=== PATIENT | male | born 1985 | race Caucasian/White ===

== ENCOUNTER 2022-06-14 08:04 | Emergency (ER) | payer OTHER, SELFPAY ==
--- NOTE | 2022-06-14 08:14 | ED.NAVMDI ---
HPI - Nausea/Vomiting/Diarrhea General Chief complaint: Nausea/Vomiting/Diarrhea Stated complaint: Nausea/Dizziness Time Seen by Provider: 06/14/22 08:10 Source: patient and RN notes reviewed History of Present Illness HPI Narrative: Patient is a 36-year-old male who presents the urgent care with complaints of nausea, headaches. Patient states that started with a headache on Friday and he was very nauseated. States that he slept all day felt better morning, went to work and had another headache by 12 PM. Patient states he slept all day yesterday and today woke up with the nausea. Patient states that the entire time he has had the cold sweats. Patient denies of any vomiting, diarrhea or abdominal pain. Patient states that the headache is nearly gone at this time. Denies of any ill exposures. Patient assumed that maybe it was due to elevated blood pressure. Patient has been taking his BP meds as prescribed. No other acute complaints. No acute distress noted. Patient read the plan of care. Some parts of this dictation were generated by voice recognition software and may contain typographical and/or grammatical inaccuracies. Related Data Home Medications Medication Instructions Recorded Confirmed irbesartan 300 1 tablet PO DAILY 06/14/22 06/14/22 mg-hydrochlorothiazide 12.5 mg tablet metoprolol succinate 50 mg 50 mg PO DAILY 06/14/22 06/14/22 tablet,extended release 24 hr Allergies Allergy/AdvReac Type Severity Reaction Status Date / Time No Known Allergies Allergy Mild Unverified 01/20/08 08:15 Review of Systems Review of Systems: CONSTITUTIONAL: Reports of cold sweats EYES: Denies visual changes, redness, or discharge. ENT: Denies rhinorrhea, congestion, sore throat, or otalgia. CARDIOVASCULAR: Denies chest pain, palpitations, or edema. RESPIRATORY: Denies cough or dyspnea. GASTROINTESTINAL: Reports of persistent nausea without vomiting or abdominal pain GENITOURINARY: Denies dysuria or hematuria. SKIN: Denies rash or itching. MUSCULOSKELETAL: Denies back pain, joint pain, or myalgia. NEUROLOGIC: Reports of a headache All other systems reviewed are negative, except as documented in HPI. PMFSH Comments At the time of my signature, I reviewed and agree with the nursing past medical, surgical, social, and family history. There is no relevant family history pertinent to the patient complaint. Exam Narrative: GENERAL: This is a well-nourished, well-developed patient, in no apparent distress. HEAD: normocephalic, atraumatic. EYES: PERRL. Sclera clear/white. Vision is grossly intact. EARS: External ears normal, auditory canals clear and without drainage, TMs normal without perforation. Hearing grossly intact. NOSE: External nose normal with no obvious nasal discharge, nares without redness, clearrhinorrhea. THROAT: Mucous membranes moist, mild bilateral tonsillar edema without exudate. Moderate postnasal drainage. NECK: Neck supple CARDIOVASCULAR: Regular rate and rhythm without murmurs, gallops, or rubs. RESPIRATORY: Clear to auscultation. Breath sounds equal bilaterally. No wheezes, rales, or rhonchi. GASTROINTESTINAL: Abdomen soft, non-tender, nondistended. Bowel sounds are active. No guarding. SKIN: Diaphoretic. Warm, intact with no suspicious lesions or rash, good texture and turgor. NEURO: awake, alert, and oriented to person, place and time. There were no obvious focal neurologic abnormalities. EXTREMITIES: No clubbing, cyanosis, or edema. Course Course Level of Care: Express Care Visit Vital Signs Vital signs: Vital Signs Temperature 98.6 F 06/14/22 08:17 Pulse Rate 106 H 06/14/22 08:17 Respiratory Rate 16 06/14/22 08:17 Blood Pressure 147/95 H 06/14/22 08:17 Pulse Oximetry 98 06/14/22 08:17 Oxygen Delivery Room Air 06/14/22 08:17 Temperature 98.6 F 06/14/22 08:19 Pulse Rate 106 H 06/14/22 08:19 Respiratory Rate 16 06/14/22 08:19 Blood Pressure 147
[2022-06-14 08:17] VITALS: BP 147/95; PULSE 106; RESP 16; TEMP 37; O2SAT 98
[2022-06-14 08:19] VITALS: BP 147/95; PULSE 106; RESP 16; TEMP 37; O2SAT 98
[2022-06-14 08:28] LABS: Glucose Point of Care 126 mg/dl (65-105)
--- NOTE | 2022-06-14 08:52 | ECG_ITS ---
Measurements Intervals [place] Rate: 95 P: 49 WY: 176 QRS: 15 QRSD: 115 T: 34 QT: 329 QTc: 415 Interpretive Statements SINUS RHYTHM WITHIN NORMAL LIMITS NO PREVIOUS ECG AVAILABLE FOR COMPARISON Electronically Signed On 06-14-2022 13:43:42 CDT by Migel Villalpando M.D.
== END 2022-06-14 08:59 | disposition home or self-care (01) ==
PROVIDERS: Emergency Provider Nurse Practitioner Family; PCP Family Medicine Sports Medicine
DX: R11.0 Nausea (principal); I10 Essential (primary) hypertension
CPT/HCPCS: 82948; 87081; 87880; 93005; 99213; G0463

== ENCOUNTER 2022-06-15 08:31 | Emergency (ER) | payer OTHER, SELFPAY ==
[2022-06-15] VITALS (11 sets, daily range): BP systolic 118–156; BP diastolic 73–102; PULSE 81–111; RESP 12–23; TEMP 37; O2SAT 95–100
--- NOTE | ~2022-06-15 | XR_ITS ---
EXAMINATION: XR chest 1V portable 06/15/2022 09:19 INDICATION: Dizziness. Hypertension. PROCEDURE: AP portable chest COMPARISON: No prior studies for comparison. FINDINGS: The lungs are clear. The cardiomediastinal silhouette is within normal limits. There are no pleural effusions. There is no pneumothorax suspected. IMPRESSION: 1: NO ACUTE CARDIOPULMONARY DISEASE. Reviewed, dictated and finalized at location A.
--- NOTE | ~2022-06-15 | CT_ITS ---
EXAMINATION: CT BRAIN W/O DATE: 06/15/2022 10:02 INDICATION: Frontal headache. Dizziness TECHNIQUE: Computed tomography (CT) of the head was performed without intravenous contrast. The dose- length product was 605.33 mGy-cm. Automated exposure control and iterative reconstruction technique were employed. COMPARISON: No prior studies for comparison. FINDINGS: Normal brain parenchymal volume for age. Normal worley-white differentiation. No acute intrac ranial hemorrhage, infarction, mass or mass effect. No ventriculomegaly or midline shift. Midline sagittal images demonstrate a normal corpus callosum, c raniovertebral junction and sella turcica. Basilar cisterns are patent. Paranasal sinuses and mastoids are pneumatized. No depressed skull fractures. IMPRESSION: 1. No acute intracranial abnormality. Reviewed, dictated and finalized at location A.
--- NOTE | 2022-06-15 08:40 | ECG_ITS ---
Measurements Intervals [place] Rate: 95 P: 34 TN: 188 QRS: 10 QRSD: 100 T: 30 QT: 323 QTc: 408 Interpretive Statements SINUS RHYTHM NONSPECIFIC ST ELEVATION LIKELY EARLY REPOLARIZATION OTHERWISE NORMAL ECG COMPARED TO ECG 06/14/2022 08:48:03 NO SIGNIFICANT CHANGE Electronically Signed On 06-16-2022 10:08:41 CDT by Migel Villalpando M.D.
--- NOTE | 2022-06-15 08:42 | ED.GENADULT ---
HPI - General Adult General Chief complaint: Headache Stated complaint: headaches, dizzy x 4 days Time Seen by Provider: 06/15/22 08:35 Source: RN notes reviewed History of Present Illness HPI narrative: Patient presents emergency department from home for headache and dizziness. Patient states for the past 4 days he has been having intermittent headaches has been associated with dizziness. States that the headaches will come and go and he currently does not have a headache but the headaches are general nature described as aching states that dizziness is described as a sensation of the room spinning and states is worse with movement of his head and getting up he states that this time he has no headache but he does have dizziness with moving his head he denies any numbness or tingling of the extremities he denies any vision changes he denies any chest pain shortness of breath abdominal pain nausea vomiting Related Data Home Medications Medication Instructions Recorded Confirmed irbesartan 300 1 tablet PO DAILY 06/14/22 06/14/22 mg-hydrochlorothiazide 12.5 mg tablet metoprolol succinate 50 mg 50 mg PO DAILY 06/14/22 06/14/22 tablet,extended release 24 hr Allergies Allergy/AdvReac Type Severity Reaction Status Date / Time No Known Allergies Allergy Mild Unverified 01/20/08 08:15 Review of Systems Review of Systems: Gen.: Denies fevers or chills Eyes: Denies eye pain or visual change ENT: Denies congestion Respiratory: Denies shortness of breath or cough CV: Denies chest pain or palpitations GI: Denies abdominal pain nausea, emesis or diarrhea Musculoskeletal: Denies back pain or muscle pain Neuro: See HPI Skin: Denies rash Except as documented, all other systems reviewed and negative [facility] Past Medical History Medical History (Updated 06/15/22 @ 14:03 by Prieto Russell DO) Hypertension Social History Social History (Updated 06/15/22 @ 08:43 by Prieto Russell DO) Smoking status: Never smoker Exam Narrative: APPEARANCE: No acute distress, nontoxic, resting in bed HEENT: Normocephalic, atraumatic, OMM, TMs clear bilaterally EYES: PERRL, EOMI NECK: Supple, nontender, full range of motion without pain, no meningismus RESPIRATORY: No respiratory distress, clear to auscultation bilaterally with no rhonchi wheezing or rales CARDIOVASCULAR: RRR s murmur ABDOMINAL: Soft, nontender, nondistended MUSCULOSKELETAL: Moves all extremities. No clubbing, cyanosis or edema. NEURO: A and O ?4, following commands, speech normal, cranial nerves II through XII grossly intact,muscle strength 5 out of 5 bilateral upper and lower extremities dizziness with rotating the head to the right and left SKIN:: Warm, dry. Normal Color PSYCHIATRIC: Normal affect/mood Course Course Emergency Course: Patient states dizziness minimally improved with meclizine and completely resolved with Valium. Patient also to get a mild headache and that was resolved with Toradol Discussed with patient results of workup and diagnosis. Discussed need for follow-up with primary care, proper use of medication, and reasons to return to the emergency department. Patient understands and agrees to current treatment plan Vital Signs Vital signs: Vital Signs Temperature 98.6 F 06/15/22 08:36 Pulse Rate 111 H 06/15/22 08:36 Respiratory Rate 20 06/15/22 08:36 Blood Pressure 156/102 H 06/15/22 08:36 Pulse Oximetry 97 06/15/22 08:36 Temperature 98.6 F 06/15/22 08:36 Pulse Rate 92 06/15/22 13:58 Respiratory Rate 15 06/15/22 13:58 Blood Pressure 145/94 H 06/15/22 13:58 Pulse Oximetry 98 06/15/22 13:58 Medical Decision Making MDM Narrative Medical decision making narrative: Patient's vertigo is felt to be likely peripheral in origin. There is no diplopia, dysarthria or dysphagia. Patient's gait is stable and there are no cerebral deficits to exam. Risk factor for central causes of vertigo reviewed. Patient felt li
[2022-06-15] MEDS: MECLIZINE HCL 25 MG TABLET PO (09:01)
[2022-06-15] MEDS: SODIUM CHLORIDE 0.9% IV 1,000 ML 999 ML IV CONT (09:01)
[2022-06-15 09:14] LABS: Basophils Absolute Auto 0.1 K/mm3 (0.0-0.1); Basophils Percent Auto 0.9 % (0.2-1.2); Eosinophils Percent Auto 0.6 % (0-4.4); Hematocrit 42.1 % (42.0-52.0); Hemoglobin 14.5 g/dL (14.0-18.0); Immature Granulocyte Absolute 0.02 K/mm3 (0.00-0.031); Immature Granulocyte Percent A 0.3 % (0-0.5); Lymphocytes Absolute Auto 1.31 K/mm3 (0.9-3.2); Lymphocytes Percent Auto 19.7 % (18.3-44.2); Mean Corpuscular HGB Conc 34.4 g/dl (32-36); Mean Corpuscular Hemoglobin 27.5 pg (26-34); Mean Corpuscular Volume 79.9 fl (80-100); Mean Platelet Volume 9.1 fl (7.4-10.4); Monocytes Absolute Auto 0.6 K/mm3 (0.1-0.6); Neutrophils Absolute Auto 4.6 K/mm3 (1.3-6.7); Neutrophils Percent Auto 69.5 % (45.5-73.1); Platelet Count Result 392 k/mm3 (150-375); Red Blood Count 5.27 M/mm3 (4.6-6.20); Red Cell Distribution Width 12.7 % (11.5-14.5); White Blood Count 6.7 K/mm3 (4.5-10.0)
[2022-06-15 09:27] LABS: Alanine Aminotransferase 27 U/L (6-50); Albumin Level 4.6 g/dL (3.5-5.1); Alkaline Phosphatase 79 U/L (38-126); Anion Gap 11 mmol/L (8-16); Aspartate Amino Transferase 29 U/L (17-59); Bilirubin,Total 0.9 mg/dL (0.2-1.3); Blood Urea Nitrogen 11 mg/dL (9-20); Carbon Dioxide 27 mmol/L (22-30); Chloride 98 mmol/L (98-107); Estimated CRCL calculation 138 ml/min; Estimated Glomerular Filt Rate > 60; Glucose 135 mg/dL (65-110); Potassium 3.5 mmol/L (3.4-5.0); Sodium 136 mmol/L (137-145)
[2022-06-15 09:37] LABS: Add Urine Microscopic? NO; Appearance Urine Clear (Clear); Bilirubin Urine Negative (Negative); Blood Urine Negative (Negative); Color Urine Yellow (Yellow); Glucose Urine UA Negative (Negative); Ketones Urine Negative (Negative); Leukocyte Esterase Ur Negative LEU/UL (Negative); Nitrate Urine Negative (Negative); Protein Urine Negative (Negative); Specific Grav Ur 1.016 (1.001-1.035); Urobilinogen Urine Negative mg/dL (<2.0)
[2022-06-15 09:38] LABS: Troponin I < 0.012 ng/mL (0.000-0.034)
--- NOTE | 2022-06-15 10:57 | PC.NURSE ---
Assumed pt care from VALERY Ramesh
--- NOTE | 2022-06-15 11:06 | PC.NURSE ---
Per verbal orders from Dr. Russell, a road test was administered. Pt ambulated from rm 10 around the central nurse's station and back to rm 10. Pt stated that he was feeling dizzy approx 1/[address] around the nurse's station. Pt pulse ox dropped from 98% to 88%. Pt denied SOB just dizzy and lightheaded. Pt quickly recovered when he stopped ambulating for approx 15-30 sec. Pt was ambulated back to rm [address] Russell was updated on the results.
[2022-06-15 11:45] LABS: D Dimer 0.37 ug/mL (<0.48)
[2022-06-15 11:57] LABS: SARS-CoV-2 RNA PCR Negative
[2022-06-15] MEDS: diazePAM (*CRX) 2 MG TABLET PO (12:27)
--- NOTE | 2022-06-15 13:45 | PC.NURSE ---
Ambulated pt with walking pulse ox - pulse ox remained 98%, pt denied dizziness, has a little headache - informed Dr Russell
[2022-06-15] MEDS: KETOROLAC 30 MG/ML VIAL (*BKC) IV PUSH (13:54)
== END 2022-06-15 14:13 | disposition home or self-care (01) ==
PROVIDERS: Emergency Provider Emergency Medicine; PCP Family Medicine Sports Medicine
DX: R51.9 Headache, unspecified (principal); I10 Essential (primary) hypertension; Z20.822 Contact with and (suspected) exposure to COVID-19
CPT/HCPCS: 36415; 70450; 71045; 80053; 81003; 84484; 85025; 85380; 93005; 96361; 96374; 99284; A9270; C9803; J1885; J7030; U0003; U0005

== ENCOUNTER 2022-08-16 08:02 | Emergency (ER) | payer OTHER, SELFPAY ==
[2022-08-16 08:07] VITALS: BP 129/88; PULSE 100; RESP 18; TEMP 37.2; O2SAT 99
--- NOTE | 2022-08-16 08:25 | ED.URI ---
HPI - URI/Sore Throat General Chief Complaint: Upper Respiratory Infection Stated Complaint: sore throat and ear pain Time Seen by Provider: 08/16/22 08:16 Source: patient and RN notes reviewed Mode of arrival: ambulatory Limitations: no limitations History of Present Illness HPI Narrative: 36-year-old male presents concern for sore throat and ear pain. He reports he started feeling ill 2 days ago, reports swollen tonsils, bilateral ear pain, sweats, chills. He reports he has been taking ibuprofen. Reports kids at home have been sick. Reports he had trouble swallowing his pills due to his tonsils this morning, however his hot coffee helped. MD elicited complaint: cough and sore throat Related Data Home Medications Medication Instructions Recorded Confirmed irbesartan 300 1 tablet PO DAILY 06/14/22 08/16/22 mg-hydrochlorothiazide 12.5 mg tablet metoprolol succinate 50 mg 50 mg PO DAILY 06/14/22 08/16/22 tablet,extended release 24 hr Allergies Allergy/AdvReac Type Severity Reaction Status Date / Time No Known Allergies Allergy Mild Unverified 01/20/08 08:15 Review of Systems Review of Systems: CONSTITUTIONAL: Reports malaise, chills, sweats EYES: Denies visual changes, redness, or discharge. ENT: Denies rhinorrhea, congestion, sinus pain. Reports otalgia and sore throat. CARDIOVASCULAR: Denies chest pain, palpitations, or edema. RESPIRATORY: Denies cough. Denies dyspnea. GASTROINTESTINAL: Denies abdominal pain, nausea, vomiting, diarrhea SKIN: Denies rash or itching. MUSCULOSKELETAL: Reports myalgia. NEUROLOGIC: Reports headache. All systems reviewed & are unremarkable except as noted in HPI and below PMFSH Past Medical History Medical History (Updated 08/16/22 @ 08:27 by Jory Mcnally NP) Hypertension Social History Social History (Updated 06/15/22 @ 08:43 by Prieto Russell DO) Smoking status: Never smoker Comments At time of signature, agree with nursing past medical, surgical, social and family history. There is no relevant family history pertinent to the presenting complaint Exam Narrative: GENERAL: Nontoxic-appearing and in no acute distress. HEAD: Normocephalic EYES: PERRLA, conjunctivae clear ENT: Nares clear. Mucous membranes moist. TM pearly worley with dull light reflex bilaterally; no tragal tenderness. Oropharynx erythematous without lesions. Tonsils enlarged and without exudate, no drooling, no hoarseness, no trismus, uvula midline. NECK: Supple. No lymphadenopathy CHEST: Clear to auscultation, breath sounds equal. No wheezing, rhonchi, rales, or stridor. No respiratory distress, speaks in full sentences. HEART: Regular rate and rhythm. No murmur heard. SKIN: Warm, dry, no rash. NEURO: Alert and oriented x3. PSYCH: Normal mood and affect Course Course Emergency Course: Patient is aware of diagnosis, understands and agrees to treatment plan. Anticipatory guidance given. Patient agrees to follow-up as directed and is aware of reasons to seek care at the emergency department. Portions of this record may have been created with voice recognition software Level of Care: Express Care Visit Vital Signs Vital signs: Vital Signs Temperature 98.9 F 08/16/22 08:07 Pulse Rate 100 08/16/22 08:07 Respiratory Rate 18 08/16/22 08:07 Blood Pressure 129/88 08/16/22 08:07 Pulse Oximetry 99 08/16/22 08:07 Oxygen Delivery Room Air 08/16/22 08:07 Temperature 98.9 F 08/16/22 08:07 Pulse Rate 100 08/16/22 08:07 Respiratory Rate 18 08/16/22 08:07 Blood Pressure 129/88 08/16/22 08:07 Pulse Oximetry 99 08/16/22 08:07 Oxygen Delivery Room Air 08/16/22 08:07 Reviewed. MDM - URI/Sore Throat MDM Narrative Medical decision making narrative: Differential diagnosis considered: [place] virus, strep pharyngitis, allergic rhinitis, upper respiratory tract infection, sinusitis, rhinosinusitis, nasopharyngitis. viral pharyngitis, otitis media, otiti
== END 2022-08-16 08:30 | disposition home or self-care (01) ==
PROVIDERS: Emergency Provider Nurse Practitioner; PCP Family Medicine Sports Medicine
DX: J02.9 Acute pharyngitis, unspecified (principal); H92.03 Otalgia, bilateral; R05.9 Cough, unspecified; I10 Essential (primary) hypertension
CPT/HCPCS: 87081; 87147; 99213; G0463

== ENCOUNTER 2023-11-24 08:49 | Emergency (ER) | payer OTHER, SELFPAY ==
[2023-11-24 08:54] VITALS: BP 138/100; PULSE 108; RESP 20; TEMP 36.7; O2SAT 100
--- NOTE | 2023-11-24 09:37 | ED.ANXIETY ---
HPI - Anxiety General Chief Complaint: Anxiety Stated Complaint: chest tight/panic attacks Time Seen by Provider: 11/24/23 09:37 Source: patient Mode of arrival: ambulatory Limitations: no limitations History of Present Illness HPI narrative: 38 year old male presents to [facility] care with complaints of 3-4 day history of intermittent episodes of panic attacks where he feels on edge and it makes his chest hurt. He reports no change in job stress feels home life with and children is good. He states that he has had episodes last week of vertigo for which he has been treated before denies any present headache or any feelings of dizziness. Patient denies any suicidal or homicidal thoughts. He reports no present chest pain, dyspnea, any episodes of diaphoresis or any nausea. MD complaint: anxiety and other (panic attacks) Onset (ago): day(s) (3-4) History of similar episodes: Yes Related Data Home Medications Medication Instructions Recorded Confirmed irbesartan 300 1 tablet PO DAILY 06/14/22 08/16/22 mg-hydrochlorothiazide 12.5 mg tablet metoprolol succinate 50 mg 50 mg PO DAILY 06/14/22 08/16/22 tablet,extended release 24 hr Allergies Allergy/AdvReac Type Severity Reaction Status Date / Time No Known Allergies Allergy Mild Unverified 01/20/08 08:15 Review of Systems Review of Systems: CONSTITUTIONAL: Denies fever, chills, or sweats. EYES: Denies visual changes, redness, or discharge. ENT: Denies rhinorrhea, congestion, sore throat, or otalgia. CARDIOVASCULAR: Denies any present chest pain, palpitations, or edema. RESPIRATORY: Denies cough or dyspnea. GASTROINTESTINAL: Denies abdominal pain, nausea, vomiting, or diarrhea. GENITOURINARY: Denies dysuria or hematuria. SKIN: Denies rash or itching. MUSCULOSKELETAL: Denies back pain, joint pain, or myalgia. NEUROLOGIC: Denies headache, numbness, or weakness. episode of vertigo last week that has resolved PSYCHIATRIC: Reports positive acute anxiety episodes, denies depression. All systems reviewed & are unremarkable except as noted in HPI and below PMFSH Past Medical History Medical History (Updated 11/25/23 @ 09:33 by Kimberly Morocho NP) BPPV (benign paroxysmal positional vertigo) Hypertension Surgical History Surgical History (Updated 11/25/23 @ 09:33 by Kimberly Morocho NP) Hx of appendectomy Social History Social History (Updated 11/25/23 @ 09:35 by Kimberly Morocho NP) Smoking status: Never smoker Alcohol intake: current Alcohol use details: rare social Substance use type: does not use Living arrangements: with family Gender identity (if verbalized by the patient): Male Comments At time of signature, agree with nursing past medical, surgical, social and family history. There is no relevant family history pertinent to the presenting complaint Exam Narrative: GENERAL: Well-appearing, well-nourished, and in no acute distress.anxious, well groomed,maintains eye contact HEAD: Normocephalic, atraumatic. EYES: PERRLA and EOMI. ENT: Nares clear, no rhinorrhea or epistaxis. Mucous membranes moist.TM's normal throat pink with no swelling NECK: Supple. CHEST: Clear to auscultation. No respiratory distress.SAO2 100% on room air, no tachypnea HEART: Regular rate and rhythm. No murmur heard. Normal peripheral pulses.denies any present chest tightness ABDOMEN: Soft, nontender, nondistended, normal active bowel sounds. EXTREMITIES: Normal range of motion. No edema. SKIN: Warm, dry, no rash. NEURO: No focal deficits. Alert and oriented x3. Course Course Emergency Course: Patient is aware of diagnosis, understands and agrees to treatment plan.? Anticipatory guidance given.? Patient agrees to follow-up as directed and is aware of reasons to seek care at the emergency department. Portions of this record may have been created with voice recognition software Patient instructed to make soon appointment with his PCP for follow up
== END 2023-11-24 10:03 | disposition home or self-care (01) ==
PROVIDERS: Emergency Provider Registered Nurse; PCP Family Medicine
DX: F41.0 Panic disorder [episodic paroxysmal anxiety] (principal); I10 Essential (primary) hypertension
CPT/HCPCS: 99213; G0463

== ENCOUNTER 2024-07-04 09:05 | Emergency (ER) | payer OTHER, SELFPAY ==
--- NOTE | ~2024-07-04 | XR_ITS ---
EXAMINATION: XR chest 2V DATE: 07/04/2024 11:01 INDICATION: Cough and fever. TECHNIQUE: Frontal and lateral views of the chest were obtained. COMPARISON: Chest single view 06/15/2022 FINDINGS: There are airspace opacities in right lower lobe, consistent with pneumonia. No pleural eff usion or pneumothorax. The heart size is normal. IMPRESSION: 1. Right lower lobe pneumonia. Reviewed, dictated and finalized at location A.
[2024-07-04 09:17] VITALS: BP 138/57; PULSE 122; RESP 18; TEMP 37.1; O2SAT 96
--- NOTE | 2024-07-04 10:03 | ED.GENADULT ---
HPI - General Adult General Chief complaint: Upper Respiratory Infection Stated complaint: Body Aches/Fever/Chills Source: patient Mode of arrival: ambulatory Limitations: no limitations History of Present Illness HPI narrative: Patient presents for evaluation of sick symptoms for last 3 days. Symptoms include fever, generalized body aches, diarrhea, sore throat, cough and pressure in the ears. Denies shortness of breath or vomiting. His child was recently diagnosed with an ear infection. He does vape. He has tried mucinex, ibuprofen and Robitussin for symptoms. Related Data Home Medications Medication Instructions Recorded Confirmed irbesartan 300 1 tablet PO DAILY 06/14/22 08/16/22 mg-hydrochlorothiazide 12.5 mg tablet metoprolol succinate 50 mg 50 mg PO DAILY 06/14/22 08/16/22 tablet,extended release 24 hr Allergies Allergy/AdvReac Type Severity Reaction Status Date / Time No Known Allergies Allergy Mild Unverified 01/20/08 08:15 Review of Systems Review of Systems: CONSTITUTIONAL: Reports fever. Denies chills, or sweats. EYES: Denies visual changes, redness, or discharge. ENT: Reports sore throat and pressure in the ears. CARDIOVASCULAR: Denies chest pain, palpitations, or edema. RESPIRATORY: Reports cough. Denies shortness of breath prior GASTROINTESTINAL: Reports diarrhea. Denies abdominal pain, nausea, vomiting GENITOURINARY: Denies dysuria or hematuria. SKIN: Denies rash or itching. MUSCULOSKELETAL: Reports generalized body NEUROLOGIC: Denies headache, numbness, dizziness, or weakness. PSYCHIATRIC: Denies anxiety or depression. [facility] Past Medical History Medical History BPPV (benign paroxysmal positional vertigo) Hypertension Surgical History Surgical History Hx of appendectomy Family History Family History Mother Family history non-contributory Social History Social History (Updated 07/04/24 @ 10:05 by BIANCA Walker, JEANNETTE) Smoking status: Current every day smoker Tobacco type: e-cigarettes/vaping Alcohol intake: current Alcohol use details: rare social Substance use type: does not use Living arrangements: with family Gender identity (if verbalized by the patient): Male Sexual Orientation (if Verbalized by the Patient): Straight or Heterosexual Spiritual care concerns: No Exam Narrative: GENERAL: Well-appearing, well-nourished, and in no acute distress. HEAD: Normocephalic, atraumatic. EYES: PERRLA and EOMI. ENT: Nares clear, no rhinorrhea or epistaxis. Mucous membranes moist. Oropharynx without tonsillar hypertrophy exudate or other lesions. Bilateral TMs pearly worley nonbulging NECK: Supple. No adenopathy or masses. No carotid bruits or JVD CHEST: Clear to auscultation. No respiratory distress. No wheezes rales or rhonchi HEART: Regular rate and rhythm. No murmur heard. Normal peripheral pulses. ABDOMEN: Soft, nontender, nondistended, normal active bowel sounds. EXTREMITIES: Normal range of motion. No edema. SKIN: Warm, dry, no rash. NEURO: No focal deficits. Alert and oriented x3. PSYCH: Normal mood and affect. Course Course Emergency Course: This is a 38-year-old male presented for evaluation of sick symptoms. Strep COVID flu all negative. Chest x-ray consistent with pneumonia. Will tx with azithromycin and augmentin. Increase hydration. OTC agents for symptom management. Follow up with primary provider. Go to the ER for worsening symptoms. Pt in agreement with plan of care. Level of Care: Express Care Visit Vital Signs Vital signs: Vital Signs Temperature 37.1 C 07/04/24 09:17 Pulse Rate 122 H 07/04/24 09:17 Respiratory Rate 18 07/04/24 09:17 Blood Pressure 138/57 L 07/04/24 09:17 Pulse Oximetry 96 07/04/24 09:17 Oxygen Delivery Room Air 07/04/24 09:17 Temperature 37.1 C 07/04/24 09:17 Pulse Rate 122 H 07/04/24 09:17 Respiratory Rate 18 07/04/24 09:17 Blood Pressure 138/57 L 07/04/24 09:17 Pulse Oximetry 96 07/04/24 09:17 Oxygen Delivery Room Air 07/04/24 09:17 Medical Decision Making Vital Signs Vital Signs: Vital Signs Temperature 37.1 C 07/04/24 09:17 Pulse Rate 122 H 07/04/24 09:17 Respiratory Rate 18 07/04/24 09:17 Blood Pressure 138/57 L 07/04/24 09:17 Pulse Oximetry 96 07/04/24 09:17 Oxygen Delivery Room Air 07/04/24 09:17 Temperature 37.1 C 07/04/24 09:17 Pulse Rate 122 H 07/04/24 09:17 Respiratory Rate 18 07/04/24 09:17 Blood Pressure 138/57 L 07/04/24 09:17 Pulse Oximetry 96 07/04/24 09:17 Oxygen Delivery Room Air 07/04/24 09:17 Lab Data Labs: Lab Results 07/04/24 Range/Units 10:05 POC Influenza A Ag Negative (Negative) POC Influenza B Ag Negative (Negative) POC SARS CoV-2 Ag Negative (Negative) POC Grp A Strep Screen Negative (Negative) Imaging Data Radiologist's impression: EXAMINATION: XR chest 2V DATE: 07/04/2024 11:01 INDICATION: Cough and fever. TECHNIQUE: Frontal and lateral views of the chest were obtained. COMPARISON: Chest single view 06/15/2022 FINDINGS: There are airspace opacities in right lower lobe, consistent with pneumonia. No pleural effusion or pneumothorax. The heart size is normal. IMPRESSION: 1. Right lower lobe pneumonia. Discharge Plan Discharge Clinical Impression: Community acquired pneumonia Patient Disposition: Home, Self-Care Condition: Stable Instructions: Community Acquired Pneumonia (ED) Patient Language: British Prescriptions: New amoxicillin-pot clavulanate 875-125 mg tablet 1 tablet PO Q12H Qty: 20 0RF azithromycin 250 mg tablet See Rx Instructions .ROUTE .COMPLEX Qty: 6 0RF Rx Instructions: For 250 mg dose pack: take 500 mg today (day 1), then 250 mg for 4 days (days 2-5) No Action metoprolol succinate 50 mg tablet extended release 24 hr 50 mg PO DAILY irbesartan-hydrochlorothiazide 300-12.5 mg tablet 1 tablet PO DAILY lorazepam 0.5 mg tablet 0.5 mg PO BID PRN (Reason: anxiety) Qty: 10 0RF Follow-up/Referrals: Mora,Kishore Reyes MD [Primary Care Provider] - Stand Alone Forms: Work/School Release IP Time of Disposition: 11:40
[2024-07-04 10:35] LABS: EDCOVIDSCREEN Negative (Negative); EDINFLUASCREEN Negative (Negative); EDINFLUBSCREEN Negative (Negative); EDSTREPNEGPOS1 Negative (Negative)
== END 2024-07-04 11:44 | disposition home or self-care (01) ==
LOC: EXPBETH 09:09
PROVIDERS: Emergency Provider Nurse Practitioner; PCP Family Medicine
DX: J18.1 Lobar pneumonia, unspecified organism (principal); Z20.822 Contact with and (suspected) exposure to COVID-19; F17.290 Nicotine dependence, other tobacco product, uncomplicated; I10 Essential (primary) hypertension
CPT/HCPCS: 71046; 87081; 87426; 87804; 87880; 99213; G0463

== ENCOUNTER 2025-04-30 08:03 | Emergency (ER) | payer OTHER, SELFPAY ==
--- OUTSIDE RECORDS SUMMARY | 2006-06-25 07:45 | XMS_ITS | Continuity of Care Document ---
Author Organization [facility] Address [address] [place] [address] [address] [place] [address] Phone Care Team Providers Care Hazardous Substances Engineer Name Role Phone Ramsey OD, Maximino Unavailable Unavailable Advance Directives Directive Yes / No Effective Date File Name No Information Encounters Encounter Description Practice Location Reason(s) For Visit Diagnoses Date Provider Providers Copied on Encounter [facility], [id number] [place] [address] [address] [place], [place], [id number], [place] tel:[phone] SEC [facility] No Information 8-200 6 Ramsey OD Maximino. [address] [facility] , [address], [place], [address], [place]. tel:[phone] Family History Family Member Type Diagnosis Age At Onset No Information Payers Payer name Insurance type Covered constitution party ID Authoriza tion(s) Medicaid [facility] [id number] Social History Type Description Quantity Date Captured Comments Sex Male Smoking Status No Information Chief Complaint And Reason For Visit No Information Reason For Referral Reason For Referral No Information History Of Present Illness Encounter Date Complaint History Of Prese nt Illness No Information Functional Status Date Functional Assessmen t No Information Instructions Date Instruction Additional Infor mation No Information Assessments Type Assessment Date No Information Patient Care Teams Name Effective Dates (start - stop) Status Members No Information
--- NOTE | 2025-04-30 08:11 | ED_ITS ---
HPI - URI/Sore Throat General Chief Complaint: Upper Respiratory Infection Stated Complaint: strep Time Seen by Provider: 04/30/25 08:25 Source: patient and RN notes reviewed Mode of arrival: ambulatory Limitations: no limitations History of Present Illness HPI Narrative: 39-year-old male presents with concern for sore throat, body aches, chills and fever. Reports he has been taking ibuprofen. He reports his was sick last week. He reports runny nose, stuffy nose and mild cough. MD elicited complaint: sore throat Related Data Home Medications ?Medication ?Instructions ?Recorded ?Confirmed ?Last Taken ?Type irbesartan 300 1 tablet PO DAILY 06/14/22 1 10/17/21 Unknown History mg-hydrochlorothiazide 12.5 mg tablet metoprolol succinate 50 mg 50 mg PO DAILY 06/14/2205/30 Unknown History tablet,extended release 24 hr Allergies Allergy/AdvReac Type Severity Reaction Status Date / Time No Known Allergies Allergy Mild Unverified 01/20/08 08:15 Review of Systems Review of Systems: CONSTITUTIONAL: Reports malaise, chills, sweats, fever. EYES: Denies visual changes, redness, or discharge. ENT: Reports rhinorrhea, congestion, and sore throat. CARDIOVASCULAR: Denies chest pain, palpitations, or edema. RESPIRATORY: Reports cough. Denies dyspnea. GASTROINTESTINAL: Denies abdominal pain, nausea, vomiting, diarrhea SKIN: Denies rash or itching. MUSCULOSKELETAL: Reports myalgia. NEUROLOGIC: Denies headache. All systems reviewed & are unremarkable except as noted in HPI and below PMFSH Past Medical History Medical History BPPV (benign paroxysmal positional vertigo) Hypertension Surgical History Surgical History Hx of appendectomy Family History Family History Mother Family history non-contributory Social History Social History (Updated 07/04/24 @ 10:05 by BIANCA Walker, JEANNETTE) Smoking status: Current every day smoker Tobacco type: e-cigarettes/vaping Alcohol intake: current Alcohol use details: rare social Substance use type: does not use Living arrangements: with family Gender identity (if verbalized by the patient): Male Sexual Orientation (if Verbalized by the Patient): Straight or Heterosexual Spiritual care concerns: No Comments At time of signature, agree with nursing past medical, surgical, social and family history. There is no relevant family history pertinent to the presenting complaint Exam Narrative: GENERAL: Well-appearing, well-nourished, and in no acute distress. HEAD: Normocephalic EYES: PERRLA, conjunctivae clear ENT: Nares clear. Mucous membranes moist. TM pearly worley with sharp light reflex bilaterally; no tragal tenderness. Oropharynx erythematous without lesions. Tonsils enlarged and without exudate, no drooling, no hoarseness, no trismus, uvula midline. NECK: Supple. No lymphadenopathy CHEST: Clear to auscultation, breath sounds equal. No wheezing, rhonchi, rales, or stridor. No respiratory distress, speaks in full sentences. HEART: Regular rate and rhythm. No murmur heard. SKIN: Warm, dry, no rash. NEURO: Alert and oriented x3. PSYCH: Normal mood and affect Course Course Emergency Course: Patient is aware of diagnosis, understands and agrees to treatment plan. Anticipatory guidance given. Patient agrees to follow-up as directed and is aware of reasons to seek care at the emergency department. Portions of this record may have been created with voice recognition software Level of Care: Express Care Visit Vital Signs Vital signs: Reviewed. MDM - URI/Sore Throat MDM Narrative Medical decision making narrative: Differential diagnosis considered: Lugo virus, strep pharyngitis, allergic rhinitis, upper respiratory tract infection, sinusitis, rhinosinusitis, nasopharyngitis. viral pharyngitis, otitis media, otitis externa, pneumonia, bronchitis, viral cough syndrome, viral syndrome, and influenza. Exam findings show no acute concerns or changes; patient is non-toxic appearing and is in no distress. Patient is appropriate for outpatient treatment and follow-up. Lab Data Attestation: I reviewed the patient's lab results. Critical Care Time Critical Care Time Critical Care Time: No Discharge Plan Discharge Clinical Impression: Acute streptococcal pharyngitis Patient Disposition: Home Condition: Stable Instructions: Antibiotic Form, Strep Throat (ED) Additional Instructions: -Take the medication as prescribed. Throw away the toothbrush after 24hours of antibiotic. -Eat and drink things that are easy to swallow, like tea or soup, or popsicles to suck on. -Oral rinses such as: Salt water gargles and/or may use topical anesthetic (eg. Chloraseptic spray) or lozenges to relieve dryness or throat pain). -Take Tylenol and ibuprofen as needed for pain and fever as directed. -Frequent hand washing or hand electrical sign wirer helper is one of the best ways to prevent spread of infection. -Follow up with primary care provider in 2-3 days if condition is not improving; or seek ER visit if you have trouble breathing, cannot drink enough fluids, have muffled voice, difficulty opening your mouth, or severe swelling. Patient Language: Korean Prescriptions: New penicillin V potassium 500 mg tablet 500 mg PO Q12H 10 Days Qty: 20 0RF No Action metoprolol succinate 50 mg tablet extended release 24 hr 50 mg PO DAILY irbesartan-hydrochlorothiazide 300-12.5 mg tablet 1 tablet PO DAILY Follow-up/Referrals: Abby,Kishore Reyes MD [Primary Care Provider, Unknown] Time of Disposition: 08:32
[2025-04-30 08:16] VITALS: BP 115/68; PULSE 86; RESP 16; TEMP 36.7; O2SAT 98
[2025-04-30 08:35] LABS: EDCOVIDSCREEN Negative (Negative); EDSTREPNEGPOS1 Positive (Negative)
== END 2025-04-30 08:35 | disposition home or self-care (01) ==
PROVIDERS: Emergency Provider Nurse Practitioner; PCP Family Medicine
DX: J02.0 Streptococcal pharyngitis (principal); Z20.822 Contact with and (suspected) exposure to COVID-19; F17.290 Nicotine dependence, other tobacco product, uncomplicated; I10 Essential (primary) hypertension
CPT/HCPCS: 87426; 87880; 99213; G0463

== ENCOUNTER 2025-06-29 08:02 | Emergency (ER) | payer OTHER, SELFPAY ==
--- NOTE | 2025-06-29 08:03 | ED_ITS ---
HPI - URI/Sore Throat General Chief Complaint: Upper Respiratory Infection Stated Complaint: throat/chills/aches Time Seen by Provider: 06/29/25 08:03 Source: patient Mode of arrival: ambulatory Limitations: no limitations History of Present Illness HPI Narrative: Cash is a 39-year-old male patient presenting to the clinic today with complaints of sore throat, chills, headache, and body aches x 24 hours. He rep orts has felt feverish but has not registered a temperature. States that his is also ill at home. No known exposure to strep. States he had strep a couple weeks ago and feels as though his symptoms are similar to that. Finished all the antibiotics that he was given and change his toothbrush at that time. He has taken ibuprofen at 4:00 a.m. this morning for pain. Rates pain 410. Denies any nausea, vomiting, abdominal pain, chest pain, or shortness of breath. No cough or nasal drainage. 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 MD elicited complaint: sore throat and nasal congestion Related Data Home Medications ?Medication ?Instructions ?Recorded ?Confirmed ?Last Taken ?Type irbesartan 300 1 tablet PO DAILY 06/14/22 1 10/17/21 Unknown History mg-hydrochlorothiazide 12.5 mg tablet metoprolol succinate 50 mg 50 mg PO DAILY 06/14/2205/30 Unknown History tablet,extended release 24 hr Allergies Allergy/AdvReac Type Severity Reaction Status Date / Time No Known Allergies Allergy Mild Verified 06/29/25 08:04 Review of Systems Review of Systems: Pertinent positives per HPI. Patient denies any fever, chills, rash, visual changes, dizziness, cough, shortness of breath, chest pain, palpitations, nausea, vomiting, diarrhea, constipation, abdominal pain, or any urinary issues. [facility] Past Medical History Medical History BPPV (benign paroxysmal positional vertigo) Hypertension Surgical History Surgical History Hx of appendectomy Family History Family History Mother Family history non-contributory Social History Social History Smoking status: Current every day smoker Tobacco type: e-cigarettes/vaping Alcohol intake: current Alcohol use details: rare social Substance use type: does not use Living arrangements: with family Gender identity (if verbalized by the patient): Male Sexual Orientation (if Verbalized by the Patient): Straight or Heterosexual Spiritual care concerns: No Comments At the time of my signature, I reviewed and agree with the nursing past medical, surgical, social, and family history. There is no relevant family history pertinent to the patient complaint. Exam Narrative: General: Well-developed, well nourished, in no apparent distress Head: Normocephalic, atraumatic Eyes: Pupils equally round and reactive to light bilaterally, EOM intact, sclera and conjunctive clear, no discharge, lids normal Ears: TMs intact and clear, ear canals clear, no drainage, grossly hearing normal. Nose: Nares patent, no discharge, no inflammation, no sinus tenderness. Mouth: Oral pharynx red with bilateral tonsillar enlargement with exudate to the left tonsil without other lesions or masses, good dentition, MMM. Neck: Supple, trachea midline, enlargement of anterior cervical nodes, no thy roid masses or goiter palpable. Cardio: Regular rate and rhythm, s1 and s2 normal, no murmur appreciated. Resp: Clear to auscultation bilaterally, no rhonchi, rales, wheezing or rubs Course Course Emergency Course: Portions of this record may have been created with voice recognition software. Level of Care: Express Care Visit Vital Signs Vital signs: Vital Signs Temperature 36.6 C 06/29/25 08:09 Pulse Rate 74 06/29/25 08:09 Respiratory Rate 16 06/29/25 08:09 Blood Pressure 130/69 06/29/25 08:09 Pulse Oximetry 99 06/29/25 08:09 Oxygen Delivery Room Air 06/29/25 08:09 Temperature 36.6 C 06/29/25 08:09 Pulse Rate 74 06/29/25 08:09 Respiratory Rate 16 06/29/25 08:09 Blood Pressure 130/69 06/29/25 08:09 Pulse Oximetry 99 06/29/25 08:09 Oxygen Delivery Room Air 06/29/25 08:09 Vital signs reviewed MDM - URI/Sore Throat MDM Narrative Medical decision making narrative: At the time of visit patient is resting comfortably on the exam table. Patient appears to be nontoxic. Complaints of sore throat, chills, headache, and body aches x 24 hours. He reports has felt feverish but has not registered a temperature. States that his is also ill at home. No known exposure to strep. States he had strep a couple weeks ago and feels as though his symptoms are similar to that. Finished all the antibiotics that he was given and change his toothbrush at that time. He has taken ibuprofen at 4:00 a.m. this morning for pain. Rates pain 4/10. Denies any nausea, vomiting, abdominal pain, chest pain, or shortness of breath. No cough or nasal drainage. 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 On exam patient has clear and intact bilateral TMs, no nasal drainage or inflammation, oral pharynx red with 1+ tonsillar enlargement with exudate to the left tonsil, anterior cervical lymphadenopathy, lung sounds are clear, heart rates regular rate and rhythm. Strep, COVID, and influenza test were ordered. Labs: Strep test was performed and positive in the clinic today. COVID and influenza testing was negative. Plan: I suspect patient has strep pharyngitis. Prescription for Augmentin was sent to the pharmacy since patient has recently been treated with amoxicillin. Work note was given. Supportive measures were discussed with the patient and they voiced understanding discharge instructions and agrees to treatment plan. Return precautions reviewed Differential Diagnosis Differential diagnosis: Likely upper respiratory infection, otitis media, sinusitis, viral infection, bronchitis, influenza, pharyngitis and other (COVID) Lab Data Labs: Lab Results 06/29/25 Range/Units 08:19 POC Influenza A Ag Negative (Negative) POC Influenza B Ag Negative (Negative) POC SARS CoV-2 Ag Negative (Negative) POC Grp A Strep Screen Positive (Negative) Discharge Plan Discharge Clinical Impression: Acute streptococcal pharyngitis Patient Disposition: Home Condition: Stable Instructions: Antibiotic Form, Strep Throat (ED) Additional Instructions: Strep test was positive in the clinic today. COVID and influenza testing was negative in the clinic today. Take prescription medications only as [id number] the medications until it is all gone Change your toothbrush in 24 hours after initiation of the antibiotics. Increase fluids and stay well hydrated May take Tylenol or motrin as directed on bottle for pain/fever May use Flonase 1 spray in each nare daily May take OTC antihistamines such as Zyrtec or Claritin daily as directed on bottle May apply Vicks vapor rub to chest to open sinuses Sinus rinses for congestion Cepacol spray, cough drops, throat lozenges, warm tea with honey/lemon, gargle salt water to soothe throat BRAT diet for diarrhea Clear liquids x 24 hours then advance as tolerated for nausea/vomiting Go to the ED if you develop a worsening in your condition- high fever not controlled by Tylenol or Motrin, dehydration, weakness, lethargy, shortness of breath, or chest pain. Follow up with your PCP in 3-5 days if symptoms persist. Patient Language: [place] Prescriptions: New amoxicillin-pot clavulanate 875-125 mg tablet 1 tablet PO Q12H 10 Days Qty: 20 0RF No Action metoprolol succinate 50 mg tablet extended release 24 hr 50 mg PO DAILY irbesartan-hydrochlorothiazide 300-12.5 mg tablet 1 tablet PO DAILY Follow-up/Referrals: Abby,Kishore Reyes MD [Primary Care Provider, Unknown] Stand Alone Forms: Work/School Release IP Time of Disposition: 08:20 Quality NIHSS Nursing Documentation ED NIHSS nursing documentation: reviewed/agree
[2025-06-29 08:09] VITALS: BP 130/69; PULSE 74; RESP 16; TEMP 36.6; O2SAT 99
[2025-06-29 08:21] LABS: EDCOVIDSCREEN Negative (Negative); EDINFLUASCREEN Negative (Negative); EDINFLUBSCREEN Negative (Negative); EDSTREPNEGPOS1 Positive (Negative)
[2025-06-29 08:37] LABS: EDSTREPNEGPOS1 Positive (Negative)
== END 2025-06-29 08:35 | disposition home or self-care (01) ==
PROVIDERS: Emergency Provider Nurse Practitioner Family; PCP Family Medicine
DX: J02.0 Streptococcal pharyngitis (principal); I10 Essential (primary) hypertension; F17.290 Nicotine dependence, other tobacco product, uncomplicated
CPT/HCPCS: 87426; 87804; 87880; 99213; G0463